=== PATIENT | male | born 1955 | race Caucasian/White ===

== ENCOUNTER 2021-10-25 18:44 | Emergency (ER) | payer OTHER ==
[~2021-10-25 18:44] MED LIST: FINASTERIDE5 MG PO; MELOXICAM7.5 MG PO; PREDNISONE 20MG20 MG PO; TAMSULOSIN HCL0.4 MG PO
[2021-10-25 19:49] LABS: BASOPHIL 0.6 % (0-2); EOSINOPHIL 1.6 % (0-7); HCT 44.7 % (42.0-52.0); HGB 15.8 g/dl (13.2-18.0); LYMPHOCYTE 16.9 % (15-48); MCH 29.8 pg (25.0-31.0); MCHC 35.3 g/dL (32.0-36.0); MCV 84.3 fL (78.0-100.0); MPV 9.7 fL (6.0-9.5); NEUTROPHIL 65.5 % (41-80); NRBC 0; PLT 210 K/uL (150-400); RDW 12.5 % (11.5-14.0); WBC 7.9 K/uL (4.0-10.5)
[2021-10-25 20:08] LABS: ALBUMIN 3.6 g/dL (3.4-5.0); BILIRUBIN - TOTAL 0.7 mg/dL (0.2-1.0); BUN/CREAT RATIO (CALC) 16.4 RATIO; CREATININE 1.1 mg/dL (0.67-1.17); GLOBULIN (CALCULATION) 3.8 g/dL; POTASSIUM 3.8 mmol/L (3.5-5.1); TOTAL PROTEIN 7.4 g/dL (6.4-8.2)
[2021-10-25 20:39] LABS: BILIRUBIN NEGATIVE (NEGATIVE); BLOOD NEGATIVE Ery/uL (NEGATIVE); CLARITY CLEAR (CLEAR); COLOR YELLOW (YELLOW); GLUCOSE (U) NORMAL (NORMAL); LEUKOCYTES NEGATIVE Leu/uL (NEGATIVE); NITRITE NEGATIVE (NEGATIVE); PROTEIN NEGATIVE (NEGATIVE); SPECIFIC GRAVITY >=1.030 (1.001-1.030); UROBILINOGEN 0.2 mg/dL (0.2-1.0)
[2021-10-25] MEDS ORDERED: LEVSIN-SL0.125 M1 SL (20:55)
[2021-10-25] MEDS ORDERED: NORCO 5-325 TA1 EACH PO (21:12)
[2021-10-25] MEDS ORDERED: ONDANSETRON ODT4 MG PO (21:12)
== END 2021-10-25 21:57 | disposition home or self-care (01) ==
LOC: FER 18:44
PROVIDERS: Internal Medicine
DX: R10.31 Right lower quadrant pain (principal); R19.7 Diarrhea, unspecified; F17.210 Nicotine dependence, cigarettes, uncomplicated
CPT/HCPCS: 36415; 80053; 81003; 83690; 84484; 85025; 93005; J1170; J2405